=== PATIENT | male | born 1995 ===

== ENCOUNTER 2016-10-11 09:03 | Emergency (ER) | payer MEDICAID ==
[2016-10-11 09:03] VITALS: BMI 18.3
[2016-10-11 09:13] VITALS: TEMP 98.5
--- NOTE | 2016-10-11 09:28 | EDPRACDOC ---
- General Information Chief Complaint: Upper Extremity Injury Stated Complaint: ARM INJURY Time Seen by Provider: 10/11/16 09:21 Information Source: Patient Mode of Arrival: Car Home Medications: Home Medications Ibuprofen 600 mg PO Q6H PRN #20 tablet 10/11/16 Allergies/Adverse Reactions: Allergies Allergy/AdvReac Type Severity Reaction Status Date / Time No Known Allergies Allergy Verified 08/08/16 12:43 - History of Present Illness Onset: yesterday HPI: Pt states at work yesterday he was removing a piece of wood when another board fell onto R forearm. C/o R forearm and wrist pain. Denies numbness, elbow pain. R hand dominate. Location: Reports: Ulnar, Radial Dominant Side: Reports: Right Mechanism: Reports: Blunt Trauma Circumstances: Reports: Work Related Tetanus Up To Date?: No Pain Severity: Reports: Mild Associated Signs and Symptoms: Reports: Forearm Pain ED Past Medical History - History Reviewed Yes Nurses notes reviewed and agree except as marked - Patient Medical History Psychological History: Denies: Depression Systemic History: Denies: Cancer - Social Medical History Smoking Status: Never smoker ETOH: Social Substance Abuse: None EDM Review of Systems - Review of Systems Constitutional: No Symptoms Reported. negative: Fever, Chills, Weakness, Fatigue, Loss of Appetite Neurological: No Symptoms Reported. negative: Headache, Dizziness, Seizure, Numbness, Weakness, Speech Difficulty, Gait Difficulty Musculoskeletal: Forearm, Wrist Integumentary: No Symptoms Reported. negative: Itching, Rash, Bruising, Wound Allergic/Immunologic: No Symptoms Reported. negative: Hives, Itching Hematologic: No Symptoms Reported. negative: Lymphadenopathy, Easy Bruising, Easy Bleeding Psychiatric: No Symptoms Reported. negative: Anxiety, Depression, Hallucinations, Insomnia, Suicidal - Physical Exam Constitutional: No apparent distress, Alert Oriented to: Time, Person, Place Last recorded Vital Signs: Last Vital Signs Temp 98.5 F 10/11/16 09:10 Pulse 67 10/11/16 09:10 Resp 16 10/11/16 09:10 BP 124/57 L 10/11/16 09:10 Pulse Ox 98 10/11/16 09:10 Oxygen Pulse Oxygen Saturation 98 O2 Device Room Air Oxygen Flow Rate Fraction of Inspired Oxygen ( FIO2) - HEENT Head: Normal ( normocephalic) - Respiratory/Cardiovascular Respiratory: Normal - CTA (BBS clear to auscultation without adventitious sounds ) Cardiovascular: Normal (RRR without murmur, gallop or rub) - Musculoskeletal Extremities: Normal (Normal tone, Pulses 2+ No cyanosis or edema, FROM) - Integumentary Skin: Normal, Warm, Dry Lymphatics: Normal (no adenopathy) - Neurologic Memory Impaired: Normal Motor Function: Normal (Normal tone, Pulses 2+ No cyanosis or edema, FROM) Mood Description: Normal Perception: Normal ED Wrist Problem Exam Wrist Symptoms: Mild Tenderness Hand Symptoms: Normal Forearm Symptoms: Mild Tenderness (distal) Distal Function/Circulation: Normal - Integumentary Skin: Normal Lymphatics: Normal ED Wrist Problem MDM - Differential Diagnosis Differential Diagnosis: Contusion, Fracture-Radius/Ulna, Sprain - Diagnostic Imaging Wrist Image interpreted by: Radiologist Diagnostic Imaging Comments: IMPRESSION: Negative. Forearm Image interpreted by: Radiologist Diagnostic Imaging Comments: IMPRESSION: Negative. Decision Time to Discharge: 09:55 - Departure Disposition: Home Condition: Good Final Diagnosis: Right wrist sprain Qualifiers: Encounter type: initial encounter Qualified Code(s): S63.501A - Unspecified sprain of right wrist, initial encounter Contusion of right forearm Qualifiers: Encounter type: initial encounter Qualified Code(s): S50.11XA - Contusion of right forearm, initial encounter Instructions: RICE Therapy (ED), Wrist Sprain (ED) Education/Counseling Given To: Patient Education/Counseling Given Regarding: Diagnosis, Treatment, Follow Up Referrals: None,No Provider [Primary Care Provider] - One Week Taqueria Coffman MD [Staff Physician] - One Week Prescriptions: New Ibuprofen 600 mg PO Q6H PRN #20 tablet PRN Reason: Pain
--- NOTE | 2016-10-11 09:50 | DIRPT ---
CLINICAL DATA: Pt states at work yesterday he was removing a piece of wood when another board fell onto R forearm. C/o R distal forearm and wrist pain. Denies numbness, elbow pain. R hand dominate. initial visit EXAM: RIGHT FOREARM - 2 VIEW COMPARISON: None. FINDINGS: No fracture. Wrist and elbow joints are normally spaced and aligned. Soft tissues are unremarkable. IMPRESSION: Negative. Electronically Signed By: Kevin Wiggins M.D. On: 10/11/2016 09:47
--- NOTE | 2016-10-11 09:51 | DIRPT ---
CLINICAL DATA: Pt states at work yesterday he was removing a piece of wood when another board fell onto R forearm. C/o R distal forearm and wrist pain. Denies numbness, elbow pain. R hand dominate. initial visit EXAM: RIGHT WRIST - COMPLETE 3+ VIEW COMPARISON: None. FINDINGS: There is no evidence of fracture or dislocation. There is no evidence of arthropathy or other focal bone abnormality. Soft tissues are unremarkable. IMPRESSION: Negative. Electronically Signed By: Kevin Wiggins M.D. On: 10/11/2016 09:48
[2016-10-11 10:03] VITALS: BP 116/59; PULSE 64
== END 2016-10-11 10:13 | disposition home or self-care (01) ==
LOC: ED 09:03
DX: S63.501A Unspecified sprain of right wrist, initial encounter (principal); S50.11XA Contusion of right forearm, initial encounter; W20.8XXA Other cause of strike by thrown, projected or falling object, initial encounter; Y99.0 Civilian activity done for income or pay
CPT/HCPCS: 99282